=== PATIENT | female | born 1950 | race Caucasian/White ===

== ENCOUNTER 2023-05-09 15:22 | Inpatient (IN) | payer MEDICARE ==
[2023-05-09] MEDS ORDERED: HEPARIN SODIUM 1,000 UN/ML (10ML VL) IV PRN (16:03)
--- NOTE | 2023-05-09 16:08 | ED ---
General Adult HPI - General Chief complaint: Chest Pain Stated complaint: AFIB Time Seen by Provider: 05/09/23 15:25 Source: EMS Mode of arrival: EMS Limitations: no limitations - History of Present Illness Initial comments: Dictation was produced using [employer] dictation software. please excuse any grammatical, word or spelling errors. Chief Complaint: 72-year-old female presents to the emergency department from [place] emergency room for new onset A. fib History of Present Illness: Patient is 72-year-old female transferred from outside emergency department. Patient initially presented there for acute onset palpitations. She was worked up found to be in A. fib with RVR. She started on Cardizem however needed metoprolol for rate control. She converted back to normal sinus rhythm. Patient's asymptomatic at the bedside. She was given 40 mg of subcutaneous Lovenox. Patient has no history of cardiac disease. Have an elevated troponin. Patient transferred here for NSTEMI. The ROS documented in this emergency department record has been reviewed and confirmed by me. Those systems with pertinent positive or negative responses have been documented in the HPI. All other systems are other negative and/or noncontributory. Review of Systems ROS Statement: Those systems with pertinent positive or pertinent negative responses have been documented in the HPI. ROS Other: All systems not noted in ROS Statement are negative. Past Medical History Past Medical History: No Reported History History of Any Multi-Drug Resistant Organisms: None Reported Past Surgical History: No Surgical Hx Reported Past Psychological History: No Psychological Hx Reported Smoking Status: Current every day smoker Past Alcohol Use History: None Reported Past Drug Use History: None Reported General Exam - General Exam Comments Initial Comments: PHYSICAL EXAM: General Impression: Alert and oriented x3, not in acute distress HEENT: Normocephalic atraumatic, extra-ocular movements intact, pupils equal and reactive to light bilaterally, mucous membranes moist. Cardiovascular: Heart regular rate and rhythm Chest: Able to complete full sentences, no retractions, no tachypnea Abdomen: abdomen soft, non-tender, non-distended, no organomegaly Musculoskeletal: Pulses present and equal in all extremities, no peripheral edema Motor: no focal deficits noted Neurological: CN II-XII grossly intact, no focal motor or sensory deficits noted Skin: Intact with no visualized rashes Psych: Normal affect and mood Limitations: no limitations Course Vital Signs 05/09/23 15:23 Pulse Rate 68 Respiratory 18 Rate Blood Pressure 107/70 O2 Sat by Pulse 95 Oximetry EKG Findings - EKG Comments: EKG Findings:: My EKG interpretation: Ventricular rate 65, sinus rhythm, MI interval 165, QRS 87, QTC 411. No MI prolongation, no QTC prolongation, no ST or T-wave changes noted. Overall, this EKG is unremarkable Medical Decision Making - Medical Decision Making Was pt. sent in by a medical professional or institution (, PA, [employer], urgent care, hospital, or long-term...) When possible be specific @ -No Did you speak to anyone other than the patient for history (EMS, parent, family, police, friend...)? What history was obtained from this source @ -No Did you review nursing and triage notes (agree or disagree)? Why? @ -I reviewed and agree with nursing and triage notes Were old charts reviewed (outside hosp., previous admission, EMS record, old EKG, old radiological studies, urgent care reports/EKG's, long-term records)? Report findings @ -No old charts were reviewed Differential Diagnosis (chest pain, altered mental status, abdominal pain women, abdominal pain men, vaginal bleeding, musculoskeletal, weakness, fever, dyspnea, syncope, headache, dizziness, GI bleed, back pain, seizure, CVA, palpatations, mental health)? @ -D Differential Palpitations: Ventricular arrhythmias, atrial arrhythmias, myocardial infarction, anemia, thyrotoxicosis, electrolyte imbalance, hypokalemia, pulmonary embolism, pulmonary disease, drugs, alcohol, anxiety, stress.... This is not meant to be an all-inclusive list. EKG interpreted by me (3pts min.). @ -See above X-rays interpreted by me (1pt min.). @ -None done CT interpreted by me (1pt min.). @ -None done U/S interpreted by me (1pt. min.). @ -None done What testing was considered but not performed or refused? (CT, X-rays, U/S, labs)? Why? @ -None What meds were considered but not given or refused? Why? @ -None Did you discuss the management of the patient with other professionals ( professionals i.e. , [facility], [employer], lab, RT, psych nurse, child protective services social worker, purchasing administrative assistant, teacher, resident medical officer, case management director)? Give summary @ -No Was smoking cessation discussed for >3mins.? @ -No Was critical care preformed (if so, how long)? @ -Yes, 30 minutes Were there social determinants of health that impacted care today? How? (Homelessness, low income, unemployed, alcoholism, drug addiction, transportation, low edu. Level, literacy, decrease access to med. care, retirement, rehab)? @ -No Was there de-escalation of care discussed even if they declined (Discuss DNR or withdrawal of care, Hospice)? DNR status @ -No What co-morbidities impacted this encounter? (DM, HTN, Smoking, COPD, CAD, Cancer, CVA, ARF, Chemo, Hep., AIDS, mental health diagnosis, sleep apnea, morbid obesity)? @ -None Was patient admitted / discharged? Hospital course, mention meds given and route, prescriptions, significant lab abnormalities, going to OR and other pertinent info. @ -72-year-old female transferred from outside hospital for new onset A. fib RVR. Patient chemically converted prior to arrival. Vital signs stable. Patient asymptomatic at the bedside. Documentation from [facility] was reviewed as entirety. She did have an elevated troponin. Patient started on heparin patient will be admitted for cardiac consultation. Case discussed with hospice for admission Undiagnosed new problem with uncertain prognosis? @ -No Drug Therapy requiring intensive monitoring for toxicity (Heparin, Nitro, Ins ulin, Cardizem)? @ -No Were any procedures done? @ -No Diagnosis/symptom? Acute, or Chronic, or Acute on Chronic? Uncomplicated (without systemic symptoms) or Complicated (systemic symptoms)? @ -New-onset A. fib, elevated troponin Side effects of treatment? @ -No Exacerbation, Progression, or Severe Exacerbation? @ -No Poses a threat to life or bodily function? How? (Chest pain, [place], [place], pneumonia, PE, COPD, DKA, ARF, appy, cholecystitis, CVA, Diverticulitis, Homicidal, Suicidal, threat to staff... and all critical care pts) @ -yes Disposition Clinical Impression: Elevated troponin Disposition: ADMITTED IP TO THIS [facility] Condition: Fair Referrals: None,Stated [Primary Care Provider] - 1-2 days Decision Time: 16:18
[2023-05-09] MEDS ORDERED: NALOXONE 0.4 MG/ML 1 ML VIAL IV PRN (16:14)
[2023-05-09] MEDS: HEPARIN SOD,PORK IN 0.45% NACL 25,000 UNIT in 0.45% NACL 1 250ML.BAG IV SCH (16:33)
[2023-05-09 16:51] LABS: African American GFR (CKD) >90 (>60 ml/min/1.73 sqM); Anion Gap 11 mmol/L; Blood Urea Nitrogen 19 mg/dL (7-17); Calcium 7.7 mg/dL (8.4-10.2); Carbon Dioxide 19 mmol/L (22-30); Chloride 109 mmol/L (98-107); Glucose 118 mg/dL (74-99); Non-African American GFR(CKD) >90 (>60 ml/min/1.73 sqM); Potassium 3.6 mmol/L (3.5-5.1); Sodium 139 mmol/L (137-145)
[2023-05-09] MEDS ORDERED: NALOXONE 0.4 MG/ML 1 ML VIAL IVP PRN (17:00)
[2023-05-09 17:07] LABS: Basophils % (A) 1 %; Eosinophils % (A) 0 %; HCT 40.8 % (34.0-46.0); HGB 13.6 gm/dL (11.4-16.0); Lymphocytes # (A) 0.9 k/uL (1.0-4.8); Lymphocytes % (A) 21 %; MCH 27.9 pg (25.0-35.0); MCHC 33.4 g/dL (31.0-37.0); MCV 83.5 fL (80.0-100.0); Mean Platelet Volume 8.2; Monocytes # (A) 0.6 k/uL (0-1.0); Monocytes % (A) 13 %; Neutrophils # (A) 2.6 k/uL (1.3-7.7); Neutrophils % (A) 62 %; Platelet Count 132 k/uL (150-450); RBC 4.88 m/uL (3.80-5.40); RDW 15.3 % (11.5-15.5); WBC 4.2 k/uL (3.8-10.6)
[2023-05-09 17:15] LABS: Partial Thromboplastin Time 25.3 sec (22.0-30.0); Prothrombin Time 11.1 sec (10.0-12.5)
[2023-05-09] MEDS: SODIUM CHLORIDE 0.9% 1,000 ML IV SCH (17:16)
[2023-05-09] MEDS ORDERED: BUTALB/APAP/CAFF 50-325-40MG TAB PO STA (17:22)
--- NOTE | 2023-05-09 17:31 | P.HPIM ---
History of Present Illness H&P Date: 05/09/23 Chief Complaint: palpitations 72 year old woman active smoker with history of psoriatic arthritis presented for palpitations. She was transferred from [facility] after they noted that patient had a HR of 180 in AFib with mild elevation of troponin to 0.2. While in [place], patient rec'd diltiazem push and started on drip and returned to NSR prior to transfer to our hospital. Pt says that she has otherwise felt in normal health prior to her arrival in [place]. 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 She further denies fevers, chills, nausea, vomiting, chest pain, dyspnea, syncope, presyncope, abdominal pain, constipation, diarrhea, dysuria, dyschezia, numbness/weakness of extremities. Pt did report headache. In our ER, patient was afebrile, 99/42, HR 75, 96% on 2L NC. CBC showed thrombocytopenia to 132, BMP showed CL 109, CO2 19, BUN 19, Cr 0.52. Coags unremarkable. Pts EKG shows sinus arrhythmia with normal axis. Pt was started on heparin and cardizem gtt and admitted to observation. All Systems reviewed and pertinent positives and negatives noted in HPI, all other symptoms are negative Gen: in no apparent distress, resting comfortably in bed Eyes: PERRL, no scleral injection or icterus HENT: normocephalic, atraumatic, good hearing acuity, moist mucous membranes Neck: no tracheal deviation, full range of motion Resp: good air exchange, breathing comfortably with no accessory muscle use, no tactile fremitus, clear to auscultation bilaterally CVS: good distal perfusion x 4, no pitting edema, regular rate and rhythm GI: soft, NTTP, ND, no hepatosplenomegaly : no suprapubic tenderness, no CVAT, elena catheter not present MSK: no clubbing, no cyanosis, no noted contractures of extremities, psoriatic rash on the dorsal aspect of hands Skin: no noted rashes, petechiae; temperature of skin is appropriate Neuro: moving all extremities without signs of weakness, CN II-XII intact Psych: cooperative, euthymic mood, insight and judgment intact Labs and Imaging as above Assessment/plan: Paroxysmal atrial fibrillation with rapid ventricular response Elevated troponin -Patient admitted to observation -Cardiology was consulted -Metoprolol 25 mg twice a day was started -Continue heparin drip, follow PTT for toxicity -Anticipate transition to Apixiban tomorrow -Patient's chads vasc score is 2 based on age and gender Patient is full code Past Medical History Past Medical History: No Reported History History of Any Multi-Drug Resistant Organisms: None Reported Past Surgical History: No Surgical Hx Reported Past Psychological History: No Psychological Hx Reported Smoking Status: Current every day smoker Past Alcohol Use History: None Reported Past Drug Use History: None Reported Medications and Allergies Allergies Allergy/AdvReac Type Severity Reaction Status Date / Time No Known Allergies Allergy Verified 05/09/23 16:33 Physical Exam Osteopathic Statement: *. No significant issues noted on an osteopathic structural exam other than those noted in the History and Physical/Consult. Vitals: Vital Signs Pulse Resp BP Pulse Ox 05/09/23 15:23 68 18 107/70 95 Intake and Output 05/09/23 05/09/23 05/09/23 06:59 14:59 22:59 Other: Weight 77.111 kg Results CBC & Chem 7: 05/09/23 16:14 05/09/23 16:14 Labs: Abnormal Lab Results - Last 24 Hours (Table) 05/09/23 05/09/23 Range/Units 16:14 16:14 Plt Count 132 L (150-450) k/uL Lymphocytes # 0.9 L (1.0-4.8) k/uL Chloride 109 H (98-107) mmol/L Carbon Dioxide 19 L (22-30) mmol/L BUN 19 H (7-17) mg/dL Glucose 118 H (74-99) mg/dL Calcium 7.7 L (8.4-10.2) mg/dL
[2023-05-09] MEDS: METOPROLOL TARTRATE 25 MG TAB PO SCH (20:56)
[2023-05-10 00:35] LABS: Partial Thromboplastin Time 50.4 sec (22.0-30.0); Prothrombin Time 11.1 sec (10.0-12.5)
[2023-05-10 08:30] LABS: HCT 39.4 % (34.0-46.0); HGB 12.8 gm/dL (11.4-16.0); MCH 27.5 pg (25.0-35.0); MCHC 32.6 g/dL (31.0-37.0); MCV 84.4 fL (80.0-100.0); Mean Platelet Volume 8.1; Platelet Count 178 k/uL (150-450); RBC 4.66 m/uL (3.80-5.40); RDW 15.2 % (11.5-15.5); WBC 3.7 k/uL (3.8-10.6)
[2023-05-10] MEDS: METOPROLOL TARTRATE 25 MG TAB PO SCH ×2 (08:35→20:26)
[2023-05-10 09:07] LABS: Monocytes # (M) 0.48 k/uL (0-1.0); Neutrophils # (M) 1.52 k/uL (1.3-7.7); Neutrophils % (M) 41 %; Nucleated Red Blood Cells 0 /100 WBC (0-0); Total Cells Counted 100
[2023-05-10 10:30] LABS: African American GFR (CKD) >90 (>60 ml/min/1.73 sqM); Anion Gap 10 mmol/L; Blood Urea Nitrogen 16 mg/dL (7-17); Carbon Dioxide 23 mmol/L (22-30); Chloride 107 mmol/L (98-107); Glucose 78 mg/dL (74-99); Magnesium 2.1 mg/dL (1.6-2.3); Non-African American GFR(CKD) >90 (>60 ml/min/1.73 sqM); Potassium 3.6 mmol/L (3.5-5.1); Sodium 140 mmol/L (137-145)
--- NOTE | 2023-05-10 12:15 | P.PN ---
Subjective Progress Note Date: 05/10/23 Feels a bit dizzy upon sitting. Troponin downtrending. Discussed with cardiology, they would like to observe patient overnight, obtain echo, d-dimer. Gen: in no apparent distress, resting comfortably in bed Eyes: PERRL, no scleral injection or icterus HENT: normocephalic, atraumatic, good hearing acuity, moist mucous membranes Neck: no tracheal deviation, full range of motion Resp: good air exchange, breathing comfortably with no accessory muscle use, no tactile fremitus, clear to auscultation bilaterally CVS: good distal perfusion x 4, no pitting edema, regular rate and rhythm GI: soft, NTTP, ND, no hepatosplenomegaly : no suprapubic tenderness, no CVAT, elena catheter not present MSK: no clubbing, no cyanosis, no noted contractures of extremities, psoriatic rash on the dorsal aspect of hands Skin: no noted rashes, petechiae; temperature of skin is appropriate Neuro: moving all extremities without signs of weakness, CN II-XII intact Psych: cooperative, euthymic mood, insight and judgment intact Hospital Course: 72 year old woman active smoker with history of psoriatic arthritis presented for palpitations. She was transferred from [facility] after they noted that patient had a HR of 180 in AFib with mild elevation of troponin to 0.2. While in [place], patient rec'd diltiazem push and started on drip and returned to NSR prior to transfer to our hospital. In our ER, patient was afebrile, 99/42, HR 75, 96% on 2L NC. CBC showed thrombocytopenia to 132, BMP showed CL 109, CO2 19, BUN 19, Cr 0.52. Coags unremarkable. Pts EKG shows sinus arrhythmia with normal axis. Pt was started on heparin and cardizem gtt and admitted to observation. Assessment/plan: Paroxysmal atrial fibrillation with rapid ventricular response Elevated troponin -Patient admitted to observation -Cardiology was consulted -Echo ordered -D-dimer ordered -Metoprolol 25 mg twice a day was started -Continue heparin drip, follow PTT for toxicity -Anticipate transition to Apixiban as outpatient -Patient's chads vasc score is 2 based on age and gender Patient is full code Objective - Vital Signs Vital signs: Vital Signs Temp 97.6 F 05/10/23 06:27 Pulse 63 05/10/23 11:53 Resp 18 05/10/23 11:53 BP 118/73 05/10/23 11:53 Pulse Ox 93 L 05/10/23 11:53 FiO2 Intake & Output 05/09/23 05/10/23 05/10/23 18:59 06:59 18:59 Weight 77.111 kg - Labs CBC & Chem 7: 05/10/23 07:39 05/10/23 07:39 Labs: Abnormal Lab Results - Last 24 Hours (Table) 05/09/23 05/09/23 05/09/23 Range/Units 16:14 16:14 16:14 WBC (3.8-10.6) k/uL Plt Count 132 L (150-450) k/uL Lymphocytes # 0.9 L (1.0-4.8) k/uL APTT (22.0-30.0) sec Chloride 109 H (98-107) mmol/L Carbon Dioxide 19 L (22-30) mmol/L BUN 19 H (7-17) mg/dL Glucose 118 H (74-99) mg/dL Calcium 7.7 L (8.4-10.2) mg/dL Troponin I 0.168 H* (0.000-0.034) ng/mL 05/09/23 05/10/23 05/10/23 Range/Units 22:53 07:39 07:39 WBC 3.7 L (3.8-10.6) k/uL Plt Count (150-450) k/uL Lymphocytes # (1.0-4.8) k/uL APTT 50.4 H (22.0-30.0) sec Chloride (98-107) mmol/L Carbon Dioxide (22-30) mmol/L BUN (7-17) mg/dL Glucose (74-99) mg/dL Calcium 8.0 L (8.4-10.2) mg/dL Troponin I (0.000-0.034) ng/mL 05/10/23 Range/Units 07:39 WBC (3.8-10.6) k/uL Plt Count (150-450) k/uL Lymphocytes # (1.0-4.8) k/uL APTT 56.6 H (22.0-30.0) sec Chloride (98-107) mmol/L Carbon Dioxide (22-30) mmol/L BUN (7-17) mg/dL Glucose (74-99) mg/dL Calcium (8.4-10.2) mg/dL Troponin I (0.000-0.034) ng/mL
--- NOTE | 2023-05-10 14:04 | CA ---
Transthoracic Echo Report Name: Emma Richard Age: 72 Gender: F : 1950 Exam Date: 05/10/2023 13:03 Exam Location: [facility] Ht (in): 65 Wt (lb): 170 Ordering Physician: Lacey Turpin Attending/Referring Phys: [id number], [place] Patient Portal Concierge Sam Thomas Procedure CPT: Indications: elevated troponin, atrial fibrillation Cardiac Hx: Technical Quality: Fair Contrast 1: Total Dose (mL): Contrast 2: Total Dose (mL): MEASUREMENTS (Male / Female) Normal Values 2D ECHO LV Diastolic Diameter PLAX 4.1 cm 4.2 - 5.9 / 3.9 - 5.3 cm LV Systolic Diameter PLAX 2.9 cm IVS Diastolic Thickness 1.0 cm 0.6 - 1.0 / 0.6 - 0.9 cm LVPW Diastolic Thickness 1.1 cm 0.6 - 1.0 / 0.6 - 0.9 cm LV Relative Wall Thickness 0.5 RV Internal Dim ED PLAX 3.3 cm LVOT Diameter 2.2 cm Aortic Root Diameter 2.8 cm LA Systolic Diameter LX 3.0 cm 3.0 - 4.0 / 2.7 - 3.8 cm LV Diastolic Volume MOD BP 44.7 cm??? 67 - 155 / 56 - 104 cm??? LV Systolic Volume MOD BP 19.8 cm??? 22 - 58 / 19 - 49 cm??? LV Ejection Fraction MOD BP 55.8 % >= 55 % LV Cardiac Index MOD BP 734.1 cm???/min???m??? LV Diastolic Volume MOD 4C 50.6 cm??? LV Systolic Volume MOD 4C 24.0 cm??? LV Ejection Fraction MOD 4C 52.6 % LV Cardiac Index MOD 4C 784.4 cm???/min???m??? LV Diastolic Length 4C 6.6 cm LV Systolic Length 4C 5.6 cm LV Diastolic Volume MOD 2C 40.4 cm??? LV Systolic Volume MOD 2C 16.2 cm??? LV Ejection Fraction MOD 2C 60.0 % LV Cardiac Index MOD 2C 713.9 cm???/min???m??? LV Diastolic Length 2C 6.5 cm LV Systolic Length 2C 5.4 cm LA Volume 45.5 cm??? 18 - 58 / 22 - 52 cm??? LA Volume Index 23.9 cm???/m??? 16 - 28 cm???/m??? Ascending Aorta Diameter 3.2 cm DOPPLER AV Peak Velocity 146.8 cm/s AV Peak Gradient 8.6 mmHg LVOT Peak Velocity 86.2 cm/s LVOT Peak Gradient 3.0 mmHg LVOT Velocity Time Integral 24.1 cm LVOT Stroke Volume 95.1 cm??? LVOT Stroke Volume Index 51.5 ml/m??? LVOT Cardiac Index 2801.0 cm???/min???m??? AV Area Cont Eq pk 2.3 cm??? MV Peak Velocity 108.8 cm/s MV Peak Gradient 4.7 mmHg MV Mean Velocity 48.1 cm/s MV Mean Gradient 1.2 mmHg MV Velocity Time Integral 37.9 cm MR Peak Velocity 370.6 cm/s MR Peak Gradient 54.9 mmHg Mitral E Point Velocity 69.1 cm/s Mitral A Point Velocity 110.6 cm/s Mitral E to A Ratio 0.6 MV Deceleration Time 311.2 ms MV E' Velocity 7.9 cm/s Mitral E to MV E' Ratio 8.7 TR Peak Velocity 267.9 cm/s TR Peak Gradient 28.7 mmHg Right Ventricular Systolic Press 38.7 mmHg PV Peak Velocity 109.2 cm/s PV Peak Gradient 4.8 mmHg FINDINGS Left Ventricle Normal LV size and wall thickness. Left ventricular ejection fraction is estimated at 50-55 %. Right Ventricle Normal right ventricular size. Right Atrium Normal right atrial size. Left Atrium Normal left atrial size. Mitral Valve Structurally normal mitral valve. Mild MR. Aortic Valve Trileaflet aortic valve. No aortic valve stenosis or regurgitation. Tricuspid Valve Structurally normal tricuspid valve. Moderate TR Pulmonic Valve Pulmonic valve not well visualized. Moderate PI. Pericardium Normal pericardium. Aorta Normal size aortic root and proximal ascending aorta. CONCLUSIONS Preserved LV systolic function Previewed by: Dr. Dc Best MD (Electronically Signed) Final Date: 10 May 2023 14:03
--- NOTE | 2023-05-10 14:12 | P.CRDCN ---
History of Present Illness Consult date: 05/10/23 Consult reason: atrial fibrillation History of present illness: The patient is a 72-year-old female who initially presented to [facility] with new onset of palpitations. She was found to be in A. fib with RVR as well as had an elevated troponin at 0.2. She had been given diltiazem and transferred to [facility] for escalation of care. Patient had converted back to sinus mechanism during transport. Currently she states she is feeling well and is resting comfortably in bed. DIAGNOSTICS: Initial EKG at [facility] shows atrial tachycardia with RVR EKG upon arrival shows sinus mechanism with nonspecific ST abnormalities Echocardiogram shows ejection fraction of 50-55% with mild valvular abnormalities Lab data: WBC 3.7, hemoglobin 12.8, hematocrit 39.4, platelet 178, d-dimer 0.93, sodium 140, potassium 3.6, BUN 16, creatinine 0.52, troponin 0.16, 0.04, TSH 1.4 REVIEW OF SYSTEMS: No fever or chills. No cough or expectoration. No diaphoresis. Patient denies headache, dizziness, blurred vision, double vision. Patient denies any stomach discomfort. No nausea, vomiting. No hematochezia. No hematemesis. Denies any black stools or blood in his stools. Denies dysuria or hematuria. No muscle weakness or numbness. PHYSICAL EXAMINATION: This is a 72-year-old female in no apparent distress at the time of my examination. HEENT: Head is atraumatic, normocephalic. Pupils are equal, round. There is no jugular venous distention. No carotid bruit is heard. CHEST EXAMINATION: Lungs are clear to auscultation. No chest wall tenderness is noted on palpation or with deep breathing. HEART EXAMINATION: Heart regular rate and rhythm. S1, S2 heard. No murmurs, gallops or rub. ABDOMEN: Soft, nontender. Bowel sounds are heard. No organomegaly noted. EXTREMITIES: 2+ peripheral pulses with no evidence of peripheral edema and no ca lf tenderness noted. NEUROLOGIC EXAMINATION: Patient is awake, alert and oriented x3. FINAL ASSESSMENT AND PLAN: Paroxysmal atrial fibrillation with RVR Elevated troponin, unclear significance, downtrend Psoriatic arthritis PLAN: Agree with low-dose beta sid Start anticoagulation for new onset of atrial fibrillation Further recommendations based on clinical course I am dictating on behalf of Dr Dc Best's history/physical and assessment/plan. Past Medical History Past Medical History: No Reported History History of Any Multi-Drug Resistant Organisms: None Reported Past Surgical History: No Surgical Hx Reported Past Psychological History: No Psychological Hx Reported Smoking Status: Current every day smoker Past Alcohol Use History: None Reported Past Drug Use History: None Reported Medications and Allergies Home Medications Medication Instructions Recorded Confirmed Type Apremilast [Otezla] 30 mg PO DIRECTED 05/09/23 05/09/23 History Apixaban [Eliquis] 5 mg PO BID #60 tab 05/10/23 Rx Metoprolol Tartrate [Lopressor] 25 mg PO BID #60 tab 05/10/23 Rx Allergies Allergy/AdvReac Type Severity Reaction Status Date / Time No Known Allergies Allergy Verified 05/09/23 17:52 Physical Exam Vitals: Vital Signs Temp Pulse Pulse Pulse Pulse Resp BP 05/10/23 11:53 63 18 118/73 05/10/23 10:29 62 64 52 L 05/10/23 08:34 66 18 127/66 05/10/23 06:27 97.6 F 59 L 15 104/63 05/10/23 02:30 57 L 12 101/60 05/10/23 01:51 97.6 F 05/10/23 00:53 49 L 20 109/66 05/09/23 21:30 65 05/09/23 21:00 63 05/09/23 20:57 66 05/09/23 19:00 68 18 102/65 05/09/23 18:30 94/64 05/09/23 18:00 101/56 05/09/23 17:30 91/57 05/09/23 17:00 99/74 05/09/23 16:30 93/63 05/09/23 16:00 109/56 05/09/23 15:30 107/70 05/09/23 15:27 05/09/23 15:23 68 18 107/70 BP BP BP Pulse Ox 05/10/23 11:53 93 L 05/10/23 10:29 116/79 121/74 121/65 05/10/23 08:34 99 05/10/23 06:27 97 05/10/23 02:30 94 L 05/10/23 01:51 05/10/23 00:53 95 05/09/23 21:30 05/09/23 21:00 05/09/23 20:57 05/09/23 19:00 96 05/09/23 18:30 97 05/09/23 18:00 94 L 05/09/23 17:30 05/09/23 17:00 94 L 05/09/23 16:30 94 L 05/09/23 16:00 93 L 05/09/23 15:30 95 05/09/23 15:27 91 L 05/09/23 15:23 95 Intake and Output 05/09/23 05/10/23 05/10/23 22:59 06:59 14:59 Other: Weight 77.111 kg Results 05/10/23 07:39 05/10/23 07:39 Cardiac Enzymes 05/09/23 05/10/23 Range/Units 16:14 11:23 Troponin I 0.168 H* 0.048 H* (0.000-0.034) ng/mL Coagulation 05/09/23 05/09/23 05/10/23 Range/Units 16:32 22:53 07:39 PT 11.1 11.1 (10.0-12.5) sec APTT 25.3 50.4 H 56.6 H (22.0-30.0) sec CBC 05/09/23 05/10/23 Range/Units 16:14 07:39 WBC 4.2 3.7 L (3.8-10.6) k/uL RBC 4.88 4.66 (3.80-5.40) m/uL Hgb 13.6 12.8 (11.4-16.0) gm/dL Hct 40.8 39.4 (34.0-46.0) % Plt Count 132 L 178 (150-450) k/uL Comprehensive Metabolic Panel 05/09/23 05/10/23 Range/Units 16:14 07:39 Sodium 139 140 (137-145) mmol/L Potassium 3.6 3.6 (3.5-5.1) mmol/L Chloride 109 H 107 (98-107) mmol/L Carbon Dioxide 19 L 23 (22-30) mmol/L BUN 19 H 16 (7-17) mg/dL Creatinine 0.52 0.52 (0.52-1.04) mg/dL Glucose 118 H 78 (74-99) mg/dL Calcium 7.7 L 8.0 L (8.4-10.2) mg/dL Current Medications Generic Name Dose Route Start Last Admin Trade Name Freq PRN Reason Stop Dose Admin Heparin Sodium (Porcine) 0 unit 05/09/23 16:03 Heparin Sodium 1,000 Un/Ml (10ml Vl) IV PER PROTOCOL PRN Low PTT Protocol Heparin Sodium/Sodium Chloride 250 mls @ 9.253 mls/hr 05/09/23 16:15 05/09/23 16:33 25,000 unit/ Sodium Chloride IV 12 units/kg/hr .Q24H RIAZ 9.253 mls/hr Administration Protocol 12 UNITS/KG/HR Sodium Chloride 1,000 mls @ 20 mls/hr 05/09/23 16:15 05/09/23 17:16 Saline 0.9% IV Not Given .Q24H RIAZ Metoprolol Tartrate 25 mg 05/09/23 21:00 05/10/23 08:35 Metoprolol Tartrate 25 Mg Tab PO 25 mg BID RIAZ Administration Naloxone HCl 0.2 mg 05/09/23 16:14 Naloxone 0.4 Mg/Ml 1 Ml Vial IV Q2M PRN Opioid Reversal Intake and Output 05/09/23 05/10/23 05/10/23 22:59 06:59 14:59 Other: Weight 77.111 kg 05/10/23 07:39 05/10/23 07:39
[2023-05-10] MEDS: SODIUM CHLORIDE 0.9% 1,000 ML IV SCH (17:30)
[2023-05-10] MEDS: HEPARIN SOD,PORK IN 0.45% NACL 25,000 UNIT in 0.45% NACL 1 250ML.BAG IV SCH (18:53)
[2023-05-11 08:41] LABS: Basophils % (A) 1 %; Eosinophils % (A) 1 %; HCT 37.3 % (34.0-46.0); HGB 12.2 gm/dL (11.4-16.0); Lymphocytes # (A) 1.3 k/uL (1.0-4.8); Lymphocytes % (A) 36 %; MCH 27.4 pg (25.0-35.0); MCHC 32.6 g/dL (31.0-37.0); Mean Platelet Volume 7.7; Monocytes # (A) 0.3 k/uL (0-1.0); Monocytes % (A) 9 %; Neutrophils # (A) 1.9 k/uL (1.3-7.7); Neutrophils % (A) 50 %; Platelet Count 198 k/uL (150-450); RBC 4.44 m/uL (3.80-5.40); RDW 15.3 % (11.5-15.5); WBC 3.7 k/uL (3.8-10.6)
[2023-05-11 09:09] LABS: African American GFR (CKD) >90 (>60 ml/min/1.73 sqM); Anion Gap 9 mmol/L; Blood Urea Nitrogen 9 mg/dL (7-17); Carbon Dioxide 20 mmol/L (22-30); Chloride 111 mmol/L (98-107); Glucose 92 mg/dL (74-99); Magnesium 2.1 mg/dL (1.6-2.3); Non-African American GFR(CKD) >90 (>60 ml/min/1.73 sqM); Sodium 140 mmol/L (137-145)
[2023-05-11] MEDS: METOPROLOL TARTRATE 25 MG TAB PO SCH (09:24)
--- NOTE | 2023-05-11 10:25 | P.PN ---
Subjective Progress Note Date: 05/11/23 Feels a bit dizzy upon sitting and c/o headache today. Troponin downtrending. Will monitor patient overnight on decreased dose of metoprolol. Gen: in no apparent distress, resting comfortably in bed Eyes: PERRL, no scleral injection or icterus HENT: normocephalic, atraumatic, good hearing acuity, moist mucous membranes Neck: no tracheal deviation, full range of motion Resp: good air exchange, breathing comfortably with no accessory muscle use, no tactile fremitus, clear to auscultation bilaterally CVS: good distal perfusion x 4, no pitting edema, regular rate and rhythm GI: soft, NTTP, ND, no hepatosplenomegaly : no suprapubic tenderness, no CVAT, elena catheter not present MSK: no clubbing, no cyanosis, no noted contractures of extremities, psoriatic rash on the dorsal aspect of hands Skin: no noted rashes, petechiae; temperature of skin is appropriate Neuro: moving all extremities without signs of weakness, CN II-XII intact Psych: cooperative, euthymic mood, insight and judgment intact Hospital Course: 72 year old woman active smoker with history of psoriatic arthritis presented f or palpitations. She was transferred from [facility] after they noted that patient had a HR of 180 in AFib with mild elevation of troponin to 0.2. While in [place], patient rec'd diltiazem push and started on drip and returned to NSR prior to transfer to our hospital. In our ER, patient was afebrile, 99/42, HR 75, 96% on 2L NC. CBC showed thrombocytopenia to 132, BMP showed CL 109, CO2 19, BUN 19, Cr 0.52. Coags unremarkable. Pts EKG shows sinus arrhythmia with normal axis. Pt was started on heparin and cardizem gtt and admitted to observation. Assessment/plan: Paroxysmal atrial fibrillation with rapid ventricular response Elevated troponin -Patient admitted to observation -Cardiology was consulted -Echo ordered = good EF, no WMA -Metoprolol 25 mg twice a day was started, decreased to 12.5mg BID on 05/11 -Continue heparin drip, follow PTT for toxicity -Anticipate transition to Apixiban as outpatient -Patient's chads vasc score is 2 based on age and gender Patient is full code Objective - Vital Signs Vital signs: Vital Signs Temp 98.1 F 05/11/23 09:19 Pulse 69 05/11/23 09:19 Resp 18 05/11/23 09:19 BP 144/73 05/11/23 09:19 Pulse Ox 95 05/11/23 09:19 FiO2 Intake & Output 05/10/23 05/11/23 05/11/23 18:59 06:59 18:59 Intake Total 243.662 372.318 Balance 243.662 372.318 Weight 77.111 kg Intake: Intake, IV Titration 243.662 132.318 Amount Heparin Sod,Pork in 0.45% 243.662 132.318 NaCl 25,000 unit In 0.45 % NaCl 1 250ml.bag @ 12 UNITS/KG/HR 9.253 mls/hr IV .Q24H [facility] Rx#: [id number] Oral 240 Other: # Voids 3 - Labs CBC & Chem 7: 05/11/23 07:53 05/11/23 07:53 Labs: Abnormal Lab Results - Last 24 Hours (Table) 05/10/23 05/10/23 05/10/23 Range/Units 07:39 11:23 11:23 WBC (3.8-10.6) k/uL APTT (22.0-30.0) sec D-Dimer 0.93 H (<0.60) mg/L FEU Chloride (98-107) mmol/L Carbon Dioxide (22-30) mmol/L Creatinine (0.52-1.04) mg/dL Calcium 8.0 L (8.4-10.2) mg/dL Troponin I 0.048 H* (0.000-0.034) ng/mL 05/11/23 05/11/23 05/11/23 Range/Units 07:53 07:53 07:53 WBC 3.7 L (3.8-10.6) k/uL APTT 54.1 H (22.0-30.0) sec D-Dimer (<0.60) mg/L FEU Chloride 111 H (98-107) mmol/L Carbon Dioxide 20 L (22-30) mmol/L Creatinine 0.48 L (0.52-1.04) mg/dL Calcium 8.0 L (8.4-10.2) mg/dL Troponin I (0.000-0.034) ng/mL
[2023-05-11] MEDS ORDERED: ACETAMINOPHEN TAB 325 MG TAB PO PRN (10:57)
--- NOTE | 2023-05-11 13:11 | P.PN ---
Subjective Progress Note Date: 05/11/23 The patient is a 72-year-old female who presented to [facility] with new onset of palpitations. She was found to be in atrial fibrillation and was transferred to [facility] for elevated troponin. She spontaneously converted back to sinus mechanism with diltiazem and has remained in sinus rhythm during her admission. She is currently on heparin drip. The patient reports a cough. She does have rhonchorous breath sounds. No chest pain or chest pressure. No recurrence of her palpitations. GENERAL: Well-appearing, well-nourished and in no acute distress. NECK: Supple without JVD or thyromegaly. LUNGS: Breath sounds rhonchorous to auscultation bilaterally. Respiration equal and unlabored. HEART: Regular rate and rhythm without murmurs, rubs or gallops. S1 and S2 heard. EXTREMITIES: Normal range of motion, no edema. No clubbing or cyanosis. Peripheral pulses intact and strong. TELEMETRY: Sinus rhythm of the last 24 hours IMPRESSION: Paroxysmal atrial fibrillation with RVR, new onset Elevated troponin, proceed with stress testing Psoriatic arthritis PLAN: Lexiscan stress testing for abnormal troponin Continue to monitor for atrial arrhythmia Continue heparin drip today and transition to Eliquis if her stress test is normal tomorrow Further recommendations to be based upon clinical course I am dictating on behalf of Dr Dc Best's history/physical and assessment/plan. Objective - Vital Signs Vital signs: Vital Signs Temp 98.2 F 05/11/23 12:23 Pulse 62 05/11/23 12:23 Resp 18 05/11/23 12:23 BP 129/71 05/11/23 12:23 Pulse Ox 93 L 05/11/23 12:23 FiO2 Intake & Output 05/10/23 05/11/23 05/11/23 18:59 06:59 18:59 Intake Total 243.662 372.318 Balance 243.662 372.318 Weight 77.111 kg Intake: Intake, IV Titration 243.662 132.318 Amount Heparin Sod,Pork in 0.45% 243.662 132.318 NaCl 25,000 unit In 0.45 % NaCl 1 250ml.bag @ 12 UNITS/KG/HR 9.253 mls/hr IV .Q24H [facility] Rx#: [id number] Oral 240 Other: Voiding Method Toilet # Voids 3 - Labs CBC & Chem 7: 05/11/23 07:53 05/11/23 07:53 Labs: Abnormal Lab Results - Last 24 Hours (Table) 05/10/23 05/11/23 05/11/23 Range/Units 11:23 07:53 07:53 WBC 3.7 L (3.8-10.6) k/uL APTT (22.0-30.0) sec Chloride 111 H (98-107) mmol/L Carbon Dioxide 20 L (22-30) mmol/L Creatinine 0.48 L (0.52-1.04) mg/dL Calcium 8.0 L (8.4-10.2) mg/dL Troponin I 0.048 H* (0.000-0.034) ng/mL 05/11/23 Range/Units 07:53 WBC (3.8-10.6) k/uL APTT 54.1 H (22.0-30.0) sec Chloride (98-107) mmol/L Carbon Dioxide (22-30) mmol/L Creatinine (0.52-1.04) mg/dL Calcium (8.4-10.2) mg/dL Troponin I (0.000-0.034) ng/mL
[2023-05-11] MEDS: SODIUM CHLORIDE 0.9% 1,000 ML IV SCH (17:06)
[2023-05-11] MEDS: HEPARIN SOD,PORK IN 0.45% NACL 25,000 UNIT in 0.45% NACL 1 250ML.BAG IV SCH ×2 (17:06→18:13)
[2023-05-11] MEDS ORDERED: ONDANSETRON 4 MG/2 ML VIAL IVP PRN (18:06)
[2023-05-11] MEDS: METOPROLOL TARTRATE 12.5 MG TAB PO SCH (21:12)
[2023-05-12] MEDS ORDERED: REGADENOSON 0.4 MG/5 ML SYRINGE IV PRN (06:00)
[2023-05-12 09:10] LABS: Basophils % (A) 1 %; Eosinophils # (A) 0.1 k/uL (0-0.7); Eosinophils % (A) 2 %; HCT 37.3 % (34.0-46.0); HGB 12.2 gm/dL (11.4-16.0); Hypochromasia Slight; Lymphocytes # (A) 1.2 k/uL (1.0-4.8); Lymphocytes % (A) 30 %; MCH 27.4 pg (25.0-35.0); MCHC 32.6 g/dL (31.0-37.0); MCV 84.2 fL (80.0-100.0); Mean Platelet Volume 7.7; Monocytes # (A) 0.3 k/uL (0-1.0); Monocytes % (A) 8 %; Neutrophils # (A) 2.3 k/uL (1.3-7.7); Neutrophils % (A) 57 %; Platelet Count 224 k/uL (150-450); RBC 4.43 m/uL (3.80-5.40); RDW 15.3 % (11.5-15.5); WBC 4.1 k/uL (3.8-10.6)
[2023-05-12] MEDS ORDERED: AMINOPHYLLINE 500 MG/20 ML VIAL IV PRN (10:10)
[2023-05-12] MEDS ORDERED: CAFFEINE CITRATE 60 MG/3 ML VIAL IV PRN (10:10)
[2023-05-12 10:47] LABS: African American GFR (CKD) >90 (>60 ml/min/1.73 sqM); Anion Gap 7 mmol/L; Blood Urea Nitrogen 8 mg/dL (7-17); Calcium 8.1 mg/dL (8.4-10.2); Carbon Dioxide 25 mmol/L (22-30); Chloride 110 mmol/L (98-107); Glucose 80 mg/dL (74-99); Magnesium 2.1 mg/dL (1.6-2.3); Non-African American GFR(CKD) >90 (>60 ml/min/1.73 sqM); Potassium 4.2 mmol/L (3.5-5.1); Sodium 142 mmol/L (137-145)
[2023-05-12] MEDS: METOPROLOL TARTRATE 12.5 MG TAB PO SCH ×2 (11:20→20:57)
--- NOTE | 2023-05-12 12:15 | NM ---
EXAMINATION TYPE: NM stress lexiscan cardiolite DATE OF EXAM: 05/12/2023 COMPARISON: NONE CLINICAL INDICATION: Female, 72 years old with history of elevated troponin, AFib; TECHNIQUE: After the intravenous administration of 10.4 mCi Tc 99m Sestamibi - Cardiolite resting SP ECT images acquired 110 minutes post injection. The patient received 0.4mg Lexiscan, 26.4 mCi Tc 99m Sestamibi - Stress images obtained [address] injection FINDINGS: Review of stress and rest SPECT images demonstrates a small fixed defect at the anterolateral apical wall which becomes slightly more pronounced on stress images. Distinct perfusion abnormality. Gated analysis shows normal wall motion with an estimated left ventricular ejection fraction of 53 %. TID is calculated at 0.89, within normal limits. 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 Further clinical correlation recommended. Estimated LVEF borderline at 53%.
--- NOTE | 2023-05-12 12:20 | P.PN ---
Subjective Progress Note Date: 05/12/23 This is a pleasant 72-year-old female patient with a history of hypertension and nicotine dependence. Presented initially to [facility] with new onset palpitations and was found to be in atrial fibrillation. She was subsequently transferred here for evaluation due to elevated troponin. She converted spontaneously back to sinus mechanism and is maintaining sinus mechanism since admission. She is currently on heparin drip. She underwent Lexiscan MPI this morning and results are pending. Overall she's feeling well. She denies any complaints of chest discomfort. She's had no further palpitations. She denies complaints of shortness of breath, orthopnea or PND. She has no edema. Objective - Vital Signs Vital signs: Vital Signs Temp 97.7 F 05/12/23 11:17 Pulse 75 05/12/23 11:17 Resp 18 05/12/23 11:17 BP 143/74 05/12/23 11:17 Pulse Ox 93 L 05/12/23 11:17 FiO2 Intake & Output 05/11/23 05/12/23 05/12/23 18:59 06:59 18:59 Intake Total 815.903 240 Output Total 600 Balance 815.903 -360 Intake: Intake, IV Titration 215.903 Amount Heparin Sod,Pork in 0.45% 215.903 NaCl 25,000 unit In 0.45 % NaCl 1 250ml.bag @ 12 UNITS/KG/HR 9.253 mls/hr IV .Q24H [facility] Rx#: [id number] Oral 600 240 Output: Urine 600 Other: Voiding Method Toilet Toilet # Voids 2 - Exam GENERAL: Well-appearing, well-nourished and in no acute distress. NECK: Supple without JVD or thyromegaly. LUNGS: Breath sounds clear to auscultation bilaterally. Respiration equal and unlabored. HEART: Regular rate and rhythm without murmurs, rubs or gallops. S1 and S2 heard. EXTREMITIES: Normal range of motion, no edema. No clubbing or cyanosis. Peripheral pulses intact and strong. - Labs CBC & Chem 7: 05/12/23 08:08 05/12/23 08:08 Labs: Abnormal Lab Results - Last 24 Hours (Table) 05/12/23 05/12/23 Range/Units 08:08 08:08 APTT 49.6 H (22.0-30.0) sec Chloride 110 H (98-107) mmol/L Calcium 8.1 L (8.4-10.2) mg/dL Assessment and Plan Assessment: #1 new onset paroxysmal atrial fibrillation with rapid ventricular response, maintaining sinus mechanism #2 elevated troponin #3 nicotine dependence Plan: From cardiology's perspective if stress test is normal transition to Eliquis anticoagulation and she may be discharged home and follow-up as an outpatient with Dr. Bets. Other recommendations pending results of stress test. PHYSICIAN'S ASSISTANT note has been reviewed, I agree with a documented findings and plan of care. Patient was seen and examined.
--- NOTE | 2023-05-12 13:16 | CA ---
Lexiscan Nuclear Stress Test Report Name: Emma Richard Exam Date: 05/12/2023 08:49 Exam Location: [place] Stress Ht (in): 65 Wt (lb): 170 BSA: 1.85 Ordering Phys: Lacey Turpin Referring Phys: Flakita,, Technologist: Konstantin Boswell Age: 72 Gender: F : 1950 Procedure CPT: Indications: Reflex order-Stress test ICD-10 Codes: Patient History: DIFFICULTY IN BREATHING, PALPITATIONS, CURRENT SMOKER Medications: Meds past 24 hrs: Pretest Chest Pain: STRESS TEST Lexiscan Protocol Exercise Duration (min:sec): 02:[address] Depressions (mm): Angina Score: Montesinos Score: Resting HR (bpm): 62 Peak HR (bpm): 91 Resting BP (mmHg): 125 / 72 Peak BP (mmHg): 125 / 72 MPHR: 150 Target HR: 128 % MPHR: 61 METS: 1.0 Total Dose: Peak Dose: Atropine: Double Product: 05753 BP Response: Stress Termination: INFUSION COMPLETE Stress Symptoms: NO SYMPTOMS Stress Summary: ECG ANALYSIS Resting ECG: Stress ECG: CONCLUSIONS At baseline EKG showed normal sinus rhythm, normal axis, no significant ST or T wave abnormalities. Patient recieved IV infusion of Lexiscan 0.4mg and at peak infusion EKG showed no change from baseline Conclusions: 1. Normal EKG response to Lexiscan infusion 2. Nuclear imaging to be reported separately. Dr. Jhon Guaman DO (Electronically Signed) Final Date: 12 May 2023 13:15
--- NOTE | 2023-05-12 14:54 | P.PN ---
Subjective Progress Note Date: 05/12/23 Hospital course: Patient is a very pleasant 72-year-old female with past medical history of nicotine dependence and psoriatic arthritis. She presented to the emergency department on 05/09/23 as a transfer from [facility] [place] where she was found to have new onset atrial fibrillation with RVR after presenting there with a chief complaint of palpitations. Patient was provided with Cardizem bolus followed by infusion and transferred to our facility, upon arrival to assist the patient had artery converted back into normal sinus rhythm. Upon arrival to our facility vital signs were stable with blood pressure 107/70, heart rate 68, temp 97.6F, respiratory rate 18, SpO2 of 95% on 2 L O2. Once reviewed. CBC was unremarkable with exception of mild thrombocytopenia with platelet count of 132 otherwise normal findings. The patient reveals hyperchloremia with chloride of 109, apical cardiothoracic 19, indicating gap of 19. BUN was slightly elevated at 19 otherwise normal findings. Troponin was 0.168. TSH was 1.490. Again, pt had already converted back into normal sinus rhythm upon arrival to our facility. EKG revealed sinus mechanism at 65 bpm with an elevated sinus arrhythmia, T-wave inversion was noted in leads 1, 2, and V1 through V5. Patient was admitted under our services of consultation cardiology. Echocardiogram was completed showing preserved EF of 50-55% with no significant valvular or structural abnormalities reported moderate tricuspid and pulmonary regurgitation. Physical exam: Patient seen and fully evaluated at bedside upon return from stress test. Patient currently free from any complaints or concerns. She denies having any headache, lightheadedness, dizziness, chest pain, palpitations, or shortness of breath. Patient denies experiencing any numbness/tingling/weakness in her extremities. Vital signs reviewed and stable. General: Nontoxic, no distress and appears stated age. Derm: Skin warm and dry, normal coloration for ethnicity. Head: Atraumatic, normocephalic and symmetric. Eyes: EOMs intact, no lid lag, and anicteric sclera Mouth: no lip lesions, mucus membranes moist Cardiovascular: regular rate and rhythm with normal S1S2, systolic murmur, positive posterior tibial pulses bilaterally, and cap refill < 2 seconds. Lungs: Respirations even, regular, and unlabored on room air. Lungs CTA bilaterally, no rhonchi, no rales, no wheezing, and no accessory muscle usage. Abdominal: soft, nontender to palpation, no guarding, no appreciable organomegaly Ext: ROM intact. No gross muscle atrophy, no edema, no contractures Neuro: Speech clear, face symmetrical and CN II-XII grossly intact with no noted focal neuro deficits Psych: Alert and oriented to person, place, time, and situation. Appropriate and pleasant affect. 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 -Labs completed and reviewed. CBC unremarkable. PTT therapeutic at 49.6 seconds. BMP showing a hyperchloremia with chloride of 110 otherwise normal findings. -Vital signs completed and reviewed. Blood pressure 143/74, heart rate 75, respiratory rate 18, temp 97.7F, and SpO2 of 93% on room air. CODE STATUS: Full code DVT prophylaxis: Heparin Anticipated discharge date: Pending outcome of Lexiscan stress test and r ecommendations supervisor of way Anticipated discharge place: Home Patient was seen independently by Nurse Pracitioner. This document was prepared using [employer] dictation software. Please allow for errors in bread panner, while rare they do occur. Hector Coffey NP rendered care for this patient independently, reviewed the findings and plan as documented in the note above. I did not physically speak with or examine the patient on this date. Objective - Vital Signs Vital signs: Vital Signs Temp 98.4 F 05/11/23 16:41 Pulse 64 05/12/23 04:00 Resp 18 05/12/23 04:00 BP 114/64 05/12/23 04:00 Pulse Ox 93 L 05/12/23 04:00 FiO2 Intake & Output 05/11/23 05/12/23 05/12/23 18:59 06:59 18:59 Intake Total 815.903 240 Output Total 600 Balance 815.903 -360 Intake: Intake, IV Titration 215.903 Amount Heparin Sod,Pork in 0.45% 215.903 NaCl 25,000 unit In 0.45 % NaCl 1 250ml.bag @ 12 UNITS/KG/HR 9.253 mls/hr IV .Q24H [facility] Rx#: [id number] Oral 600 240 Output: Urine 600 Other: Voiding Method Toilet Toilet # Voids 2 - Labs CBC & Chem 7: 05/12/23 08:08 05/12/23 08:08 Labs: Abnormal Lab Results - Last 24 Hours (Table) 05/11/23 05/11/23 05/11/23 Range/Units 07:53 07:53 07:53 WBC 3.7 L (3.8-10.6) k/uL APTT 54.1 H (22.0-30.0) sec Chloride 111 H (98-107) mmol/L Carbon Dioxide 20 L (22-30) mmol/L Creatinine 0.48 L (0.52-1.04) mg/dL Calcium 8.0 L (8.4-10.2) mg/dL
[2023-05-12] MEDS: SODIUM CHLORIDE 0.9% 1,000 ML IV SCH (20:58)
[2023-05-13] MEDS ORDERED: APIXABAN 5 MG TAB PO SCH (09:00)
[2023-05-13] MEDS: METOPROLOL TARTRATE 12.5 MG TAB PO SCH (10:08)
--- NOTE | 2023-05-13 10:33 | P.DS ---
Providers Date of admission: 05/09/23 16:14 Expected date of discharge: 05/13/23 Attending physician: Sunny Boggs MD Consults: 05/09/23 16:14 Consult Physician Routine Consulting Provider: Jhon Guaman Consult Reason/Comments: elevated troponin Do you want consulting provider notified?: Yes Primary care physician: Stated None Hospital Course: Discharge Diagnosis: Paroxysmal atrial fibrillation with rapid ventricular response Elevated troponins Hospital Course: Patient is a very pleasant 72-year-old female with past medical history of nicotine dependence and psoriatic arthritis. She presented to the emergency department on 05/09/23 as a transfer from [facility] where she was found to have new onset atrial fibrillation with RVR after presenting there with a chief complaint of palpitations. Patient was provided with Cardizem bolus followed by infusion and transferred to our facility, upon arrival to assist the patient had artery converted back into normal sinus rhythm. Upon arrival to our facility vital signs were stable with blood pressure 107/70, heart rate 68, temp 97.6F, respiratory rate 18, SpO2 of 95% on 2 L O2. Once reviewed. CBC was unremarkable with exception of mild thrombocytopenia with platelet count of 132 otherwise normal findings. The patient reveals hyperchloremia with chloride of 109, apical cardiothoracic 19, indicating gap of 19. BUN was slightly elevated at 19 otherwise normal findings. Troponin was 0.168. TSH was 1.490. Again, pt had already converted back into normal sinus rhythm upon arrival to our facility. EKG revealed sinus mechanism at 65 bpm with an elevated sinus arrhythmia, T-wave inversion was noted in leads 1, 2, and V1 through V5. Patient was admitted under our services of consultation cardiology. Echocardiogram was completed showing preserved EF of 50-55% with no significant valvular or structural abnormalities reported moderate tricuspid and pulmonary regurgitation. Patient underwent evaluation by grit removal operator and Lexiscan stress test. 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 Cardiology recommending patient undergo cardiac catheterization. Patient declining undergoing this procedure at this time. Patient was explained risks up to and including risk of cardiac . Patient reports she is free from chest pain or discomfort at this time. Patient does not want to undergo p rocedure secondary to personal reasons/concerns. Patient cleared from cardiac standpoint for discharge. Patient being discharged on metoprolol and Eliquis. Physical exam: Vital signs reviewed and stable. General: Nontoxic, no distress and appears stated age. Derm: Skin warm and dry, normal coloration for ethnicity. Head: Atraumatic, normocephalic and symmetric. Eyes: EOMs intact, no lid lag, and anicteric sclera Mouth: no lip lesions, mucus membranes moist Cardiovascular: regular rate and rhythm with normal S1S2, systolic murmur, positive posterior tibial pulses bilaterally, and cap refill < 2 seconds. Lungs: Respirations even, regular, and unlabored on room air. Lungs CTA bilaterally, no rhonchi, no rales, no wheezing, and no accessory muscle usage. Abdominal: soft, nontender to palpation, no guarding, no appreciable organomegaly Ext: ROM intact. No gross muscle atrophy, no edema, no contractures Neuro: Speech clear, face symmetrical and CN II-XII grossly intact with no noted focal neuro deficits Psych: Alert and oriented to person, place, time, and situation. Appropriate and pleasant affect. A total of 35 minutes of time were spent preparing this complex discharge summary. Pt was discharged on 05/13/23 at 9:54 AM Patient was seen independently by Nurse Practitioner. This document was prepared using [employer] dictation software. Please allow for errors in instrument person while rare they do occur. Hector Coffey NP rendered care for this patient independently, reviewed the findings and plan as documented in the note above. I did not physically speak with or examine the patient on this date. Patient Condition at Discharge: Stable Plan - Discharge Summary Discharge Rx Participant: Yes New Discharge Prescriptions: New Metoprolol Tartrate [Lopressor] 12.5 mg PO BID tab Apixaban [Eliquis] 5 mg PO BID 30 Days #60 tab Continue Apremilast [Otezla] 30 mg PO DIRECTED Discharge Medication List Apremilast [Otezla] 30 mg PO DIRECTED 05/09/23 [History] Apixaban [Eliquis] 5 mg PO BID 30 Days #60 tab 05/12/23 [Rx] Metoprolol Tartrate [Lopressor] 12.5 mg PO BID tab 05/12/23 [Rx] Follow up Appointment(s)/Referral(s): Dc Best MD [STAFF PHYSICIAN] - 1 Week (Office to call with appointment date and time.) [facility] [REFERRING] - 1-2 Days (Office not available for appointment date and time. Patient to schedule, ensure office is aware this is a follow up from a hospital stay.) Patient Instructions/Handouts: A-fib (Atrial Fibrillation) (DC), Blood Thinners (DC) Activity/Diet/Wound Care/Special Instructions: Activity: As tolerated. Take breaks as needed. Diet: Heart healthy and carb consistent diet. Avoid salts, or foods with hidden salts such as canned or boxed foods and frozen dinners. Extra salt makes your heart work harder and traps the fluid in your body for longer. Special Instructions: Take all of your medications as directed and remember to keep all of your doctor's appointments and follow-up as needed. You were strongly advised to undergo cardiac catheterization, but have declined at this time. It is of utmost importance for you to understand that if you experience any chest pain, shortness of breath, or palpitations you must return to the emergency department immediately for evaluation. As discussed, prescription was sent for metoprolol was initally sent for 25 mg twice daily and after the prescription was sent your dose was decreased to 12.5 mg twice daily. As this prescription was already sent through pharmacy and was delivered to your room, it is important for you to only take half a tablet twice daily as discussed. You are also being discharged home on a blood thinner, Eliquis. This is very important to take daily as directed until otherwise advised by your grit removal operator-Dr. Best. Being that you are being placed on a blood thinner it is very important to watch for any signs of bleeding and notify your doctor immediately if you notice any bleeding. It is also important to remove any trip hazards such as rugs or loose extension cords from your home to prevent unnecessary falls and if you do experience a fall or head injury, it is extremely important to be evaluated by a medical provider immediately to ensure no internal bleeding. Thank you for allowing us to participate in your care, it was truly a pleasure having you for our patient!!! Discharge Disposition: HOME SELF-CARE
[2023-05-13 10:36] VITALS: BP 128/72; PULSE 59; RESP 16; TEMP 98.5
--- NOTE | 2023-05-13 10:36 | P.PN ---
Subjective Progress Note Date: 05/13/23 Hospital course: Patient is a very pleasant 72-year-old female with past medical history of nicotine dependence and psoriatic arthritis. She presented to the emergency department on 05/09/23 as a transfer from [facility] where she was found to have new onset atrial fibrillation with RVR after presenting there with a chief complaint of palpitations. Patient was provided with Cardizem bolus followed by infusion and transferred to our facility, upon arrival to assist the patient had artery converted back into normal sinus rhythm. Upon arrival to our facility vital signs were stable with blood pressure 107/70, heart rate 68, temp 97.6F, respiratory rate 18, SpO2 of 95% on 2 L O2. Once reviewed. CBC was unremarkable with exception of mild thrombocytopenia with platelet count of 132 otherwise normal findings. The patient reveals hyperchloremia with chloride of 109, apical cardiothoracic 19, indicating gap of 19. BUN was slightly elevated at 19 otherwise normal findings. Troponin was 0.168. TSH was 1.490. Again, pt had already converted back into normal sinus rhythm upon arrival to our facility. EKG revealed sinus mechanism at 65 bpm with an elevated sinus arrhythmia, T-wave inversion was noted in leads 1, 2, and V1 through V5. Patient was admitted under our services of consultation cardiology. Echocardiogram was completed showing preserved EF of 50-55% with no significant valvular or structural abnormalities reported moderate tricuspid and pulmonary regurgitation. Physical exam: Patient seen and fully evaluated at bedside upon return from stress test. Patient currently free from any complaints or concerns. She denies having any headache, lightheadedness, dizziness, chest pain, palpitations, or shortness of breath. Patient denies experiencing any numbness/tingling/weakness in her extremities. Vital signs reviewed and stable. General: Nontoxic, no distress and appears stated age. Derm: Skin warm and dry, normal coloration for ethnicity. Head: Atraumatic, normocephalic and symmetric. Eyes: EOMs intact, no lid lag, and anicteric sclera Mouth: no lip lesions, mucus membranes moist Cardiovascular: regular rate and rhythm with normal S1S2, systolic murmur, positive posterior tibial pulses bilaterally, and cap refill < 2 seconds. Lungs: Respirations even, regular, and unlabored on room air. Lungs CTA bilaterally, no rhonchi, no rales, no wheezing, and no accessory muscle usage. Abdominal: soft, nontender to palpation, no guarding, no appreciable organomegaly Ext: ROM intact. No gross muscle atrophy, no edema, no contractures Neuro: Speech clear, face symmetrical and CN II-XII grossly intact with no noted focal neuro deficits Psych: Alert and oriented to person, place, time, and situation. Appropriate and pleasant affect. 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 -Labs completed and reviewed. CBC unremarkable. PTT therapeutic at 49.6 seconds. BMP showing a hyperchloremia with chloride of 110 otherwise normal findings. -Vital signs completed and reviewed. Blood pressure 143/74, heart rate 75, respiratory rate 18, temp 97.7F, and SpO2 of 93% on room air. CODE STATUS: Full code DVT prophylaxis: Heparin Anticipated discharge date: Pending outcome of Lexiscan stress test and r ecommendations district manager Anticipated discharge place: Home Patient was seen independently by Nurse Pracitioner. This document was prepared using [employer] dictation software. Please allow for errors in communications department chair, while rare they do occur. Objective - Vital Signs Vital signs: Vital Signs Temp 97.9 F 05/12/23 20:00 Pulse 56 L 05/13/23 04:00 Resp 18 05/13/23 04:00 BP 114/55 05/13/23 04:00 Pulse Ox 95 05/13/23 04:00 FiO2 Intake & Output 05/12/23 05/13/23 05/13/23 18:59 06:59 18:59 Intake Total 600 Balance 600 Intake: Oral 600 Other: Voiding Method Toilet Toilet # Voids 3 1 - Labs CBC & Chem 7: 05/12/23 08:08 05/12/23 08:08 Labs: Abnormal Lab Results - Last 24 Hours (Table) 05/12/23 05/12/23 Range/Units 08:08 08:08 APTT 49.6 H (22.0-30.0) sec Chloride 110 H (98-107) mmol/L Calcium 8.1 L (8.4-10.2) mg/dL
--- NOTE | 2023-05-13 12:21 | P.PN ---
Subjective HISTORY OF PRESENT ILLNESS: 05/12/23 This is a pleasant 72-year-old female patient with a history of hypertension and nicotine dependence. Presented initially to [facility] with new onset palpitations and was found to be in atrial fibrillation. She was subsequently transferred here for evaluation due to elevated troponin. She converted spontaneously back to sinus mechanism and is maintaining sinus mechanism since admission. She is currently on heparin drip. She underwent Lexiscan MPI this morning and results are pending. Overall she's feeling well. She denies any complaints of chest discomfort. She's had no further palpitations. She denies complaints of shortness of breath, orthopnea or PND. She has no edema. 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 Patient examined this morning at the bedside. Patient denies any chest pain or pressure. She denies any shortness of breath. She remains on IV heparin. PHYSICAL EXAM: VITAL SIGNS: Reviewed. GENERAL: Well-developed in no acute distress. NECK: Supple. No JVD or thyromegaly LUNGS: Respirations even and unlabored. Lungs essentially clear to auscultation bilaterally. HEART: Regular rate and rhythm. S1 and S2 heard. EXTREMITIES: Normal range of motion. No clubbing or cyanosis. Peripheral pulses intact. No lower extremity edema ASSESSMENT: New onset paroxysmal atrial fib relation with RVR, currently maintaining sinus mechanism Elevated troponin, status post Lexiscan stress test revealing small amount of. Infarct ischemia Nicotine dependence PLAN: Continue current cardiac medications Recommend patient to undergo cardiac catheterization. Patient declining to have cardiac catheterization performed at this time and is adamant about being discharged home today. Will discontinue IV heparin Begin oral anticoagulation Patient may be discharged home today and follow up outpatient in the office Nurse practitioner note has been reviewed by physician. Signing provider agrees with the documented findings, assessment, and plan of care. Objective - Vital Signs Vital signs: Vital Signs Temp 98.5 F 05/13/23 10:05 Pulse 59 L 05/13/23 10:05 Resp 16 05/13/23 10:05 BP 128/72 05/13/23 10:05 Pulse Ox 93 L 05/13/23 10:05 FiO2 Intake & Output 05/12/23 05/13/23 05/13/23 18:59 06:59 18:59 Intake Total 600 Balance 600 Intake: Oral 600 Other: Voiding Method Toilet Toilet Toilet # Voids 3 1 - Labs CBC & Chem 7: 05/12/23 08:08 05/12/23 08:08 Labs: Abnormal Lab Results - Last 24 Hours (Table) 05/13/23 Range/Units 08:54 APTT 39.3 H (22.0-30.0) sec
--- NOTE | 2023-05-13 14:03 | CDI ---
Documentation Clarification Form Date: 05/13/2023 01:42:05 PM From: Bernadette Rodriguez RN CCDS Phone: [phone] Admit Date: 05/09/2023 04:14:00 PM Patient Name: Emma Richard Visit Number: [id number] Discharge Date: 05/13/2023 12:37:00 PM ATTENTION: The Clinical Documentation Specialists (CDI) and [facility] Coding Staff appreciate your assistance in clarifying documentation. Please respond to the clarification below the line at the bottom and electronically sign. The CDI & [facility] Coding staff will review the response and follow-up if needed. Please note: Queries are made part of the Legal Health Record. If you have any questions, please contact the author of this message via ITS. Dr. Suha Castillo Elevated troponin, status post Lexiscan stress test revealing small amount of infract ischemia, 05/13, Cardiology note. Please clarify if there is an additional diagnosis and/or clinical significance. Patient history/risk factors: 72-year-old female presents to the ED as a transfer from [facility] in [place]. Clinical indicators: Troponins, 05/09: H&P: Mild elevation of troponin of 0.2 while in [place]. Lab Troponins: 05/09 0.168; 05/10 0.048 Lexiscan, 05/12: This exam suggests a small area of old infarct at the anterolateral apical wall with small amount of juliana-infarct ischemia.Further clinical correlation recommended. Cardiology note, 05/13:Recommed patient to undergo cardiac catheterization. Patient declining to have cardiac catheterization performed at this time and is adamant about being discharged home today. EKG, Cardiology consult, 05/10: Initial EKG at [facility] shows atrial tachycardia with RVR EKG upon arrival shows sinus mechanism with nonspecific ST abnormalities. Echocardiogram shows ejection fraction of 50-55% with mild valvular abnormalities. The patient presented to [facility] with new onset of palpitations. She was found to be in A. fib with RVR as well as had an elevated troponin at 0.2.She had been given diltiazem and transferred to [facility] for escalation of care.Patient had converted back to sinus mechanism during transport. Treatment: 05/09 Trending Troponin, 05/12 Lexiscan, 05/09 Diltiazem at [place] (Found in Cardiology consult 05/10) 05/09 05/11 Heaprin IV per protocol; 05/09 05/11 Lopressor 25mg PO BID, 05/11 05/13 Lopressor 12.5mg PO BID; 05/13 Eliquis 5mg PO BID. Is there an additional diagnosis and/or clinical significance related to the above lab result/information: [ ] Type 2 [place] due to Paroxysmal Atiral Fib with RVR [ ] Type 2 [place] due to (please specify) [ ] No additional diagnosis/Not clinically significant [ ] Other, please specify [ xx ] Unable to determine Reference: [employer] Fourth [place] Definition of Myocardial Infraction Elevated Cardiac Troponin >99th percentile with Troponin rise and/or fall With Acute ischemia o Acute Myocardial Infarction ? Atherosclerosis thrombosis Type I AZ ? Oxygen supply and demand imbalance Type II [place] (Please indicate etiology) Without acute ischemia o Acute Myocardial Injury (Template Last Reviewed: November 2022) MTDD
[2023-05-13] MEDS ORDERED: ATORVASTATIN 20 MG TAB PO SCH (21:00)
== END 2023-05-13 12:37 | disposition home or self-care (01) | DRG 310 ==
LOC: EC 15:22 → 3SCARD 16:14
PROVIDERS: ADMIT Internal Medicine; ATTEND Internal Medicine
DX: I48.0 Paroxysmal atrial fibrillation (principal); L40.50 Arthropathic psoriasis, unspecified; F17.210 Nicotine dependence, cigarettes, uncomplicated; R79.89 Other specified abnormal findings of blood chemistry; D69.6 Thrombocytopenia, unspecified; I08.1 Rheumatic disorders of both mitral and tricuspid valves; E87.8 Other disorders of electrolyte and fluid balance, not elsewhere classified; I10 Essential (primary) hypertension; Z79.01 Long term (current) use of anticoagulants; Z79.899 Other long term (current) drug therapy
CPT/HCPCS: 36415; 78452; 80048; 83735; 84443; 84484; 85025; 85379; 85610; 85730; 93005; 93017; 93306; 96365; 96366; 99291